=== PATIENT | female | born 1980 | race Two or more races ===

== ENCOUNTER 2018-09-25 09:00 | Observation (INO) | payer MEDICAID, OTHER ==
[~2018-09-25] VITALS: Ht 157.5 cm; Wt 67.6 kg
[2018-09-25] MEDS ORDERED: PREN-96 PO (09:37)
[2018-09-25] MEDS ORDERED: BETAMETHASONE ACET (6MG/ML) 5ML VIAL IM ONE (09:45)
== END 2018-09-25 10:06 | disposition home or self-care (01) | DRG 563 ==
LOC: LDRP 09:00
PROVIDERS: ADMIT Specialist; ATTEND Specialist
DX: O60.03 Preterm labor without delivery, third trimester (principal); O26.873 Cervical shortening, third trimester; O09.523 Supervision of elderly multigravida, third trimester; Z3A.30 30 weeks gestation of pregnancy
CPT/HCPCS: 59025; 81002; 96372; G0378; J0702

== ENCOUNTER 2018-09-26 08:25 | Observation (INO) | payer MEDICAID ==
[~2018-09-26] VITALS: Ht 1 cm; Wt 0.5 kg
[~2018-09-26 08:25] MED LIST: PREN-96 PO
[2018-09-26] MEDS ORDERED: BETAMETHASONE ACET (6MG/ML) 5ML VIAL IM ONE (08:45)
== END 2018-09-26 09:50 | disposition home or self-care (01) | DRG 563 ==
LOC: LDRP 08:25
PROVIDERS: ADMIT Obstetrics & Gynecology; ATTEND Obstetrics & Gynecology
DX: O60.03 Preterm labor without delivery, third trimester (principal); O09.523 Supervision of elderly multigravida, third trimester; Z3A.30 30 weeks gestation of pregnancy
CPT/HCPCS: 59025; 81002; 96372; G0378

== ENCOUNTER 2018-10-03 16:05 | Observation (INO) | payer MEDICAID | END 2018-10-03 17:05 | disposition home or self-care (01) | DRG 563 | LOC: LDRP 16:05 | PROVIDERS: ADMIT Obstetrics & Gynecology; ATTEND Obstetrics & Gynecology | DX: O60.03 Preterm labor without delivery, third trimester (principal); O09.523 Supervision of elderly multigravida, third trimester; Z3A.31 31 weeks gestation of pregnancy | CPT/HCPCS: 59025; 81002; G0378 ==

== ENCOUNTER 2018-10-10 09:00 | Observation (INO) | payer MEDICAID ==
[2018-10-10] MEDS ORDERED: NIF10C PO (09:34)
== END 2018-10-10 09:50 | disposition home or self-care (01) | DRG 563 ==
LOC: LDRP 09:00
PROVIDERS: ADMIT Specialist; ATTEND Specialist
DX: O60.03 Preterm labor without delivery, third trimester (principal); O09.523 Supervision of elderly multigravida, third trimester; Z3A.32 32 weeks gestation of pregnancy
CPT/HCPCS: 59025; 81002; G0378

== ENCOUNTER 2018-10-16 12:10 | Observation (INO) | payer MEDICAID ==
[~2018-10-16 12:10] MED LIST changes: +NIF10C PO
== END 2018-10-16 13:25 | disposition home or self-care (01) | DRG 563 ==
LOC: LDRP 12:10
PROVIDERS: ADMIT Obstetrics & Gynecology; ATTEND Obstetrics & Gynecology
DX: O60.03 Preterm labor without delivery, third trimester (principal); O09.523 Supervision of elderly multigravida, third trimester; Z3A.32 32 weeks gestation of pregnancy
CPT/HCPCS: 59025; 81002; G0378

== ENCOUNTER 2018-10-20 08:10 | Observation (INO) | payer MEDICAID | END 2018-10-20 09:20 | disposition home or self-care (01) | DRG 563 | LOC: LDRP 08:10 | PROVIDERS: ADMIT Obstetrics & Gynecology; ATTEND Obstetrics & Gynecology | DX: O60.03 Preterm labor without delivery, third trimester (principal); O26.873 Cervical shortening, third trimester; Z3A.33 33 weeks gestation of pregnancy | CPT/HCPCS: 59025; 76815; 81002; G0378 ==

== ENCOUNTER 2018-10-23 10:20 | Observation (INO) | payer MEDICAID | END 2018-10-23 11:35 | disposition home or self-care (01) | DRG 566 | LOC: LDRP 10:20 | PROVIDERS: ADMIT Specialist; ATTEND Specialist | DX: O26.893 Other specified pregnancy related conditions, third trimester (principal); R10.9 Unspecified abdominal pain; Z3A.33 33 weeks gestation of pregnancy | CPT/HCPCS: 59025; 81002; G0378 ==

== ENCOUNTER 2018-10-30 09:36 | Observation (INO) | payer MEDICAID | END 2018-10-30 10:40 | disposition home or self-care (01) | DRG 563 | LOC: LDRP 09:36 | PROVIDERS: ADMIT Obstetrics & Gynecology; ATTEND Obstetrics & Gynecology | DX: O60.03 Preterm labor without delivery, third trimester (principal); O09.523 Supervision of elderly multigravida, third trimester; Z3A.34 34 weeks gestation of pregnancy | CPT/HCPCS: 59025; 81002; G0378 ==

== ENCOUNTER 2018-11-08 13:05 | Observation (INO) | payer MEDICAID | END 2018-11-08 14:05 | disposition home or self-care (01) | DRG 563 | LOC: LDRP 13:05 | PROVIDERS: ADMIT Obstetrics & Gynecology; ATTEND Obstetrics & Gynecology | DX: O60.03 Preterm labor without delivery, third trimester (principal); Z3A.35 35 weeks gestation of pregnancy | CPT/HCPCS: 59025; 81002; G0378 ==

== ENCOUNTER 2018-11-13 11:00 | Observation (INO) | payer MEDICAID ==
[~2018-11-13] VITALS: Ht 157.5 cm; Wt 69.4 kg
== END 2018-11-13 11:58 | disposition home or self-care (01) | DRG 563 ==
LOC: LDRP 11:00
PROVIDERS: ADMIT Specialist; ATTEND Specialist
DX: O60.03 Preterm labor without delivery, third trimester (principal); Z3A.36 36 weeks gestation of pregnancy
CPT/HCPCS: 59025; 81002; G0378

== ENCOUNTER 2018-11-20 10:24 | Observation (INO) | payer MEDICAID | END 2018-11-20 11:17 | disposition home or self-care (01) | DRG 955 | LOC: LDRP 10:24 | PROVIDERS: ADMIT Obstetrics & Gynecology; ATTEND Obstetrics & Gynecology | DX: O09.93 Supervision of high risk pregnancy, unspecified, third trimester (principal); Z3A.37 37 weeks gestation of pregnancy | CPT/HCPCS: 59025; 81002; G0378 ==

== ENCOUNTER 2018-11-28 09:21 | Inpatient (IN) | payer MEDICAID ==
[~2018-11-28] VITALS: Ht 157.5 cm; Wt 70.3 kg
[~2018-11-28 09:21] MED LIST changes: -NIF10C PO
[2018-11-28] MEDS ORDERED: LACTATED RINGER'S 1,000 ML IV SCH (09:50)
[2018-11-28] MEDS ORDERED: PENICILLIN G POT 5MIL/D5 50ML 50 ML IV ONE ×2 (10:15→10:17)
[2018-11-28] MEDS ORDERED: LACT. RINGERS/OXYTOCIN 20UNITS 1,000 ML IV SCH (10:40)
[2018-11-28] MEDS ORDERED: PHISODERM TOP SOLN 240ML BTL TOP ONE (10:45)
[2018-11-28] MEDS ORDERED: METHYLERGONOVINE MALEATE 0.2 MG/ML AMP IM ONE ×2 (10:45→15:45)
[2018-11-28] MEDS ORDERED: DERMOPLAST 60ML BOTTLE TOP PRN (10:45)
[2018-11-28] MEDS ORDERED: WITCH HAZEL-GLYCERIN PAD TOP PRN (10:45)
[2018-11-28] MEDS ORDERED: LIDOCAINE 2%HCL (LOCAL ANESTH.) INJ 10ml MDV IJ ONE (10:45)
[2018-11-28 10:46] LABS: Basophils # (auto) 0 uL; Basophils % (auto) 0.5 % (0.0-2.0); Eosinophils # (auto) 0.1 uL; Eosinophils % (auto) 0.7 % (0.0-7.0); Hemoglobin 12.5 g/dL (12.2-16.2); Lymphocytes # (auto) 1.7 uL; Lymphocytes % (auto) 19.9 % (10.0-50.0); Mean Corpuscular Hgb Conc. 33.8 g/dL (32.0-36.0); Mean Corpuscular Volume 94.8 fL (80.0-100.0); Monocytes # (auto) 0.4 uL; Neutrophils # (auto) 6.3 uL; Neutrophils % (auto) 73.9 % (37.0-80.0); Nucleated Red Blood Cells % 0.1 %; Platelet Count (auto) 202 10^3/uL (140-450); Red Blood Cells 3.91 10^6/uL (4.0-5.20); Red Cell Distribution Width 14.4 % (11.8-14.3); White Blood Cell 8.5 10^3/uL (4.4-10.8)
[2018-11-28 10:50] LABS: Urine Bacteria NONE SEEN /hpf (None Seen); Urine Blood Negative /uL (Negative); Urine Mucus FEW (None Seen); Urine Specific Gravity 1.026 (1.001-1.035); Urine WBC 17 /hpf (0 - 5)
[2018-11-28 11:02] LABS: INR < 0.93 (0.9-1.15); Partial Thromboplastin Time 27.3 sec (23.64-32.05)
[2018-11-28] MEDS ORDERED: LIDOCAINE 2%HCL (LOCAL ANESTH.) INJ 20ML MDV ONE (11:09)
[2018-11-28 11:22] LABS: Albumin 2.6 g/dL (3.4-5.0); Calcium 8.3 mg/dL (8.5-10.1); Potassium 3.7 mmol/L (3.5-5.1)
[2018-11-28 11:27] LABS: Bilirubin, Total 0.6 mg/dL (0.2-1.0); Total Protein 6.7 g/dL (6.4-8.2); Uric Acid 5.3 mg/dL (2.6-6.0)
[2018-11-28] MEDS ORDERED: PENICILLIN G POTASSIUM 2,500,000 UNITS in D5W 5% 50 ML IV SCH (14:00)
--- NOTE | 2018-11-28 14:30 | NUR ---
Ambulation: Patient OOB with standby assistance by RN. Patient ambulated to bathroom with steady gait. Patient able to void without difficulty. [facility] teaching provided with returned demonstration by patient. Clean gown provided and bed linen changed. Patient ambulated back to bed with steady gait and no distress noted.
[2018-11-28 15:00] VITALS: BP 118/65
[2018-11-28] MEDS ORDERED: IBUPROFEN 600 MG TAB PO PRN (15:45)
[2018-11-28] MEDS ORDERED: ACETAMINOPHEN 325 MG TAB PO PRN (15:45)
[2018-11-28 19:00] VITALS: BP 106/64
[2018-11-28 23:00] VITALS: BP 113/67
[2018-11-29 03:10] VITALS: BP 106/68
[2018-11-29 05:07] LABS: RPR Non Reactive (Non Reactive)
[2018-11-29 07:15] VITALS: BP 98/67
[2018-11-29] MEDS ORDERED: DOCUSATE CALCIUM 240 MG CAP PO SCH (10:00)
[2018-11-29 11:30] VITALS: BP 106/67
[2018-11-29 15:00] VITALS: BP 108/71
[2018-11-29 19:20] VITALS: BP 104/55
[2018-11-29 23:10] VITALS: BP 99/54
[2018-11-30 03:29] VITALS: BP 99/61
[2018-11-30 06:40] VITALS: BP 119/76
[2018-11-30 11:10] VITALS: BP 105/68
[2018-11-30 16:25] VITALS: BP 127/87
--- NOTE | 2018-11-30 16:35 | NUR ---
Discharge: Discharge instructions given as ordered. Pt encouraged to follow up with [facility] as instructed. All questions and concerns addressed. Patient verbalized understanding. Medication reconciliation completed and copy given to patient. All required/requested vaccines given and copies of vaccinations given to patient. Patient encouraged to prepare to depart unit.Discharge: Patient taken to vehicle via ambulation with all personal belongings, accompanied by staff and family member. No distress noted at time of departure, no adverse changes in status since initial assessment.
== END 2018-11-30 16:35 | disposition home or self-care (01) | DRG 560 ==
LOC: LDRP 09:21 → OBSVTOIN 09:44 → LDRP 11:29
PROVIDERS: ADMIT Obstetrics & Gynecology; ATTEND Obstetrics & Gynecology
PROC: 10E0XZZ Delivery of Products of Conception, External Approach (ICD-10-PCS; principal; 2018-11-28)
PROC: 0KQM0ZZ Repair Perineum Muscle, Open Approach (ICD-10-PCS; 2018-11-28)
PROC: 10907ZC Drainage of Amniotic Fluid, Therapeutic from Products of Conception, Via Natural or Artificial Opening (ICD-10-PCS; 2018-11-28)
DX: O62.3 Precipitate labor (principal); O34.219 Maternal care for unspecified type scar from previous cesarean delivery; Z37.0 Single live birth; Z3A.38 38 weeks gestation of pregnancy; O70.1 Second degree perineal laceration during delivery
CPT/HCPCS: 36415; 59025; 59612; 80053; 81001; 84112; 84550; 85025; 85610; 85730; 86592; 86850; 86900; 86901; 96361; 96366; 96372; G0378; J2001; J2540; J2590; J7060